=== PATIENT | male | born 1995 | race Two or more races ===

== ENCOUNTER 2016-08-28 15:26 | Emergency (ER) | payer OTHER ==
[~2016-08-28] VITALS: Ht 185.4 cm; Wt 104.3 kg
--- NOTE | 2016-08-28 15:39 | PHYS DOC ---
Adult General Chief Complaint Chief Complaint: LACERATION/AVULSION HPI HPI 20-year-old male who lacerated the hyperthenar area of the palmar aspect of his right hand with a linear laceration of approximately 2.5 cm in length oxalate 20 minutes prior to arrival. Bleeding is currently controlled. Patient has no loss of sensation in the affected extremity. He is unsure when his last tetanus was obtained. He has no significant past medical history. He states he has no pain at this time. Review of Systems Review of Systems Constitutional: Denies fever or chills [] Eyes: Denies change in visual acuity, redness, or eye pain [] HENT: Denies nasal congestion or sore throat [] Respiratory: Denies cough or shortness of breath [] Cardiovascular: No additional information not addressed in HPI [] GI: Denies abdominal pain, nausea, vomiting, bloody stools or diarrhea [] : Denies dysuria or hematuria [] Musculoskeletal: Denies back pain or joint pain [] Integument: Denies rash or skin lesions [] Neurologic: Denies headache, focal weakness or sensory changes [] Endocrine: Denies polyuria or polydipsia [] Current Medications Current Medications Current Medications Medications (Trade) Dose Ordered Sig/Alek Start Time Stop Time Status Last Admin Dose Admin Diphtheria/ Tetanus/Acell Pertussis (Boostrix) 0.5 ml ONCE ONCE 08/28/16 16:00 08/28/16 16:01 DC 08/28/16 16:00 0.5 ML Lidocaine/Sodium Bicarbonate (Buffered Lidocaine 1%) 20 ml 1X ONCE 08/28/16 16:00 08/28/16 16:01 DC 08/28/16 15:52 20 ML Allergies Allergies Allergies Coded Allergies Type Severity Reaction Last Updated Verified pollen extracts Allergy Intermediate 08/28/16 No Physical Exam Physical Exam Constitutional: Well developed, well nourished, no acute distress, non-toxic appearance. [] HENT: Normocephalic, atraumatic, bilateral external ears normal, oropharynx moist, no oral exudates, nose normal. [] Eyes: PERRLA, EOMI, conjunctiva normal, no discharge. [] Neck: Normal range of motion, no tenderness, supple, no stridor. [] Cardiovascular:Heart rate regular rhythm, no murmur [] Lungs & Thorax: Bilateral breath sounds clear to auscultation [] Abdomen: Bowel sounds normal, soft, no tenderness, no masses, no pulsatile masses. [] Skin: Warm, dry, no erythema, no rash. [] Back: No tenderness, no CVA tenderness. [] Extremities: Superficial linear laceration to the palmar aspect of the hyperthenar eminence, no cyanosis, no clubbing, ROM intact, no edema, radial pulse in the affected extremity is 2+. [] Neurologic: Alert and oriented X 3, normal motor function, normal sensory function, no focal deficits noted. [] Psychologic: Affect normal, judgement normal, mood normal. [] EKG EKG [] Radiology/Procedures Radiology/Procedures [] Course & Med Decision Making Course & Med Decision Making Pertinent Labs and Imaging studies reviewed. (See chart for details) This 20-year-old male with a laceration to the right hand will have the wound appropriately irrigated and sutured. His tetanus will be updated. Return precautions for suture removal will be given. He has no significant past medical history that would limit his wound healing. The wound was fully irrigated with normal saline. 1% buffered lidocaine was infiltrated around the wound edges with excellent analgesia. 3 4-0 silk sutures were placed with excellent approximation. His tetanus status was updated. Return precautions were provided and acknowledged by the patient. Dragon Disclaimer Dragon Disclaimer This electronic medical record was generated, in whole or in part, using a voice recognition dictation system. Laceration Repair Lac Repair Indication: Laceration Procedure: The patient was placed in the appropriate position and anesthesia around the laceration was infiltrated. The area was then cleansed with normal saline. The laceration was closed with 3 4-0 silk sutures. The wound area was then dressed with a gauze dressing. Total repaired wound length: 2.5 cm. Other Items: None The patient tolerated the procedure well. Complications: None. Departure Departure Impression: Primary Impression: Laceration Disposition: 01 HOME, SELF-CARE Admitting Physician: Other Condition: STABLE Patient Instructions: Laceration Care, Adult, [id number] Additional Instructions: Please follow up with your primary doctor in the next 7-10 days for your laceration. Keep the laceration clean and dry and keep in covered if you are using your hands. Return to the ER if you develop any redness, swelling, or notice any drainage from the wound. ARNULFO MARTEL DO August 28, 2016 15:39
[2016-08-28 15:45] VITALS: BP 128/74
[2016-08-28] MEDS ORDERED: DIPHTH,PERTUSS(ACELL),TET TOX 0.5 ML DISP.SYRIN. VAX IM ONE (16:00)
[2016-08-28] MEDS ORDERED: LIDOCAINE 1% / SOD BICARB 8.4% 20 ML VIAL. IJ ONE (16:00)
== END 2016-08-28 16:20 | disposition home or self-care (01) ==
LOC: ER 15:57
DX: S61.411A Laceration without foreign body of right hand, initial encounter (principal); Z88.9 Allergy status to unspecified drugs, medicaments and biological substances; W45.8XXA Other foreign body or object entering through skin, initial encounter; Y93.89 Activity, other specified; Y92.89 Other specified places as the place of occurrence of the external cause; Y99.8 Other external cause status
CPT/HCPCS: 12001; 90471; 90715; 99283-25